=== PATIENT | female | born 1990 | race Caucasian/White ===

== ENCOUNTER 2017-01-30 15:38 | Emergency (ER) | payer SELFPAY ==
--- NOTE | ~2017-01-30 | ER ---
[facility] AGE: 26 Y [address] ROOM: [place] [id number] LOCATION: [facility] ADMIT DATE: 01/30/2017 ER/Outpatient Report DISCHARGE DATE: 01/30/2017 FAMILY PHYSICIAN: Gerald Moreno MD ATTENDING PHYSICIAN: Sammy Espinal TIME OF ARRIVAL: 1538. TIME OF EVALUATION: 1543. CHIEF COMPLAINT: Laceration. HISTORY OF PRESENT ILLNESS: The patient is a 26-year-old female, who presents to the emergency department today with chief complaint of laceration to right arm. She reports she tripped over dog and broken a glass in the bathroom. Glass broke and she cut her arm. She reports sharp pain, it is worse with touch. She has a 1.5 cm laceration to the right forearm as well as 0.5 cm laceration to right forearm. This did occur just prior to arrival. Mild pain in severity. PAST MEDICAL HISTORY: None. PAST SURGICAL HISTORY: Two C-sections. SOCIAL HISTORY: The patient smokes half a pack to pack a day. Denies any alcohol or illicit drug use. ALLERGIES: AMOXICILLIN. MEDICATIONS: None. PRIMARY CARE DOCTOR: Dr. Moreno. REVIEW OF SYSTEMS: All systems are reviewed by myself and are negative with the exception of those discussed in HPI and past medical history. PATIENT'S NAME: KAYLEE [facility]INGH [facility] AGE: 26 Y [address] ROOM: [place] [address] LOCATION: [facility] ADMIT DATE: 01/30/2017 ER/Outpatient Report DISCHARGE DATE: 01/30/2017 FAMILY PHYSICIAN: Gerald Moreno MD ATTENDING PHYSICIAN: Sammy Espinal PHYSICAL EXAMINATION: VITAL SIGNS: Weight 57.7 kg, blood pressure 106/70, pulse 82, respiratory rate 20, temperature 97.6, oxygen saturation 100% on room air. GENERAL: The patient is a 26-year-old female, who appears her stated age, in mild acute distress. HEENT: Normocephalic, atraumatic. Pupils are equal, round, and reactive to light. NECK: Supple. There is no nuchal rigidity. CARDIOVASCULAR: Regular rate and rhythm. No murmurs, rubs, or gallops. LUNGS: Clear to auscultation bilaterally. No wheezes, rales, or rhonchi. ABDOMEN: Soft, nontender, and nondistended. No rebound, rigidity, or guarding. MUSCULOSKELETAL: The patient moves all 4 extremities. SKIN: The patient has a 1.5 cm laceration to the right forearm as well as 0.5 cm laceration to the right forearm at a different site. LABORATORY DATA AND X-RAYS: None. IMPRESSION: 1. A 2.0 cm total laceration length to the right forearm with tissue adhesive repair. 2. Initial visit. EMERGENCY DEPARTMENT COURSE: The patient was brought back to the examination room. Seen and evaluated by myself. I have discussed that I would recommend suturing these lacerations as they are rather gaping. The patient reports she is deathly afraid of needles and does not want any sutures. We did irrigate the wound with normal saline. The wound is explored. I see no evidence of foreign body. The wound is then closed with tissue adhesive. Steri-Strips were also applied to help assist. I have discussed wound care with the patient. I have discussed return to care instructions including worsening symptoms or any other concerns to return to the emergency department. Otherwise, the patient is to follow up with her primary care Dr. Gerald Moreno in 7-10 days for re-evaluation. DISPOSITION: The patient is discharged home in good condition. SAMMY ESPINAL DO PATIENT'S NAME: ROLAN SINGH [facility] AGE: 26 Y [address] ROOM: [place], [place] [address] LOCATION: [facility] ADMIT DATE: 01/30/2017 ER/Outpatient Report DISCHARGE DATE: 01/30/2017 FAMILY PHYSICIAN: Gerald Moreno MD ATTENDING PHYSICIAN: Sammy Espinal/johnny /[id number] d: 01/30/172231 t: 02/03/172032, OUTPATIENT REPORT
[~2017-01-30 15:38] MED LIST: COLACE100 MG PO; FEOSOL325 MG PO; MOTRIN800 MG PO; PERCOCET 5-3251 EACH PO; PRENATAL 1+1)(P1 TAB PO; SURFAK240 MG PO; TUMS200 MG PO; TYLENOL EXTRA500 MG PO
== END 2017-01-30 16:05 | disposition disaster alternative care site (69) ==
LOC: GACC 15:38
PROC: 0HQDXZZ Repair Right Lower Arm Skin, External Approach (ICD-10-PCS; principal; 2017-01-30)
DX: S51.811A Laceration without foreign body of right forearm, initial encounter (principal); F17.210 Nicotine dependence, cigarettes, uncomplicated; Z23 Encounter for immunization; Z88.1 Allergy status to other antibiotic agents; Z98.890 Other specified postprocedural states; W01.110A Fall on same level from slipping, tripping and stumbling with subsequent striking against sharp glass, initial encounter; Y92.002 Bathroom of unspecified non-institutional (private) residence as the place of occurrence of the external cause